=== PATIENT | male | born 1995 | race African-American/Black ===

== ENCOUNTER 2019-12-07 18:07 | Emergency (ER) | payer SELFPAY ==
--- NOTE | 2019-12-07 19:27 | ER ---
Nurse's Notes [facility] Name: Sumit Dangelo Jr Age: 23 yrs Sex: Male : 1995 Arrival Date: 12/07/2019 Time: 18:11 Bed Waiting Private MD: Diagnosis: Presentation: 12/06 18:28 Chief complaint: Patient states: States he would like to be checked for STD's. Denies ll1 being knowingly exposed to STD's. Denies any symptoms. No fever, no N/V/D. Coronavirus screen: Proceed with normal triage. Patient denies a cough. Patient denies shortness of breath or difficulty breathing. Patient denies measured and/or subjective temperature greater than 100.4F prior to today's visit. Patient denies travel on a cruise ship or to a country the [facility] currently lists as an affected area. Patient denies contact with known and/or suspected case of COVID-19. Ebola Screen: Patient denies travel to an Ebola-affected area in the 21 days before illness onset. Initial Sepsis Screen: Does the patient meet any 2 criteria? HR > 90 bpm. No. Patient's initial sepsis screen is negative. Does the patient have a suspected source of infection? No. Patient's initial sepsis screen is negative. Risk Assessment: Do you want to hurt yourself or someone else? Patient reports no desire to harm self or others. Onset of symptoms was December 07, 2019. 18:28 Method Of Arrival: Ambulatory ll1 18:28 Acuity: CHRIS 5 ll1 Historical: - Allergies: 18:30 No Known Allergies; ll1 - PMHx: 18:30 None; ll1 - PSHx: 18:30 None; ll1 - Immunization history:: Adult Immunizations up to date. - Social history:: Smoking status: Patient denies any tobacco usage or history of. Patient/guardian denies using alcohol, street drugs, tobacco products. Vital Signs: 18:28 BP 157 / 93; Pulse 100; Resp 18; Temp 99.1; Pulse Ox 97% ; Pain 0/10; ll1 ED Course: 18:11 Patient arrived in ED. as 18:30 Triage completed. ll1 18:30 Arm band placed on Patient notified of wait time. ll1 19:25 Patient's name was called from ER lobby. No response. Unable to locate patient. Will ll1 disposition as left without being seen by a provider. Administered Medications: No medications were administered Outcome: 19:26 Patient left the ED. ll1 Signatures: Abida Mac Lynsay, RN RN ll1
[2019-12-07 19:34] VITALS: BP 157/93; TEMP 99.1; O2SAT 97
== END 2019-12-07 19:26 | disposition left against medical advice (07) ==
LOC: ER 18:07
DX: Z20.2 Contact with and (suspected) exposure to infections with a predominantly sexual mode of transmission (principal); Z53.21 Procedure and treatment not carried out due to patient leaving prior to being seen by health care provider
CPT/HCPCS: 99281

== ENCOUNTER 2019-12-14 20:33 | Emergency (ER) | payer SELFPAY ==
[2019-12-14 20:59] LABS: Basophils % 0.4 % (0-1.3); Hematocrit 47.1 % (39.6-49.0); Lymphocytes % 10.6 % (15.3-44.8); MPV 8.3 fL (7.6-11.3)
[2019-12-14 21:03] LABS: Protime INR 1.09
[2019-12-14] MEDS ORDERED: ACT CHARCOAL/SORB 50 GM/240ML ONE (21:04)
[2019-12-14 21:13] LABS: ALT/SGPT 31 U/L (12-78); AST/SGOT 30 U/L (15-37); Albumin 4.1 g/dL (3.4-5.0); Alkaline Phosphatase 162 U/L (45-117); BUN Blood Urea Nitrogen 10 mg/dL (7-18); Bicarbonate 26 mmol/L (21-32); Bilirubin Direct 0.1 mg/dL (0-0.2); Bilirubin Total 0.3 mg/dL (0.2-1.0); Glucose Level 86 mg/dL (74-106); Potassium 3.8 mmol/L (3.5-5.1); Protein, Total 8.2 g/dL (6.4-8.2); Sodium Level 139 mmol/L (136-145)
[2019-12-14] MEDS ORDERED: NA CHLORIDE 0.9% 2,000 ML ONE (21:18)
[2019-12-14 22:14] LABS: Urine Blood NEGATIVE (NEG); Urine Glucose NEGATIVE (NEG); Urine Protein NEGATIVE (NEG); Urine Specific Gravity >1.030 (1.005-1.030); Urine pH 5.5 (5.0-7.0)
[2019-12-14 22:30] LABS: Barbiturates NEGATIVE (NEGATIVE); Benzodiazepines NEGATIVE (NEGATIVE); Cocaine POSITIVE (NEGATIVE); METHAMPHETAM NEGATIVE (NEGATIVE); Methadone NEGATIVE (NEGATIVE); Opiates NEGATIVE (NEGATIVE); Phencyclidine POSITIVE (NEGATIVE); THC Cannibis POSITIVE (NEGATIVE)
[2019-12-14 22:43] VITALS: BP 155/82; O2SAT 98
--- NOTE | 2019-12-15 19:27 | ER ---
Nurse's Notes [facility] Name: Sumit Dangelo Jr Age: 23 yrs Sex: Male : 1995 Arrival Date: 12/14/2019 Time: 20:34 Bed External Waiting Private MD: None, None Diagnosis: Drug overdose ( Recreational ) Presentation: 12/13 20:36 Acuity: CHRIS 2 sg 20:36 Chief complaint: EMS states: pt ingested 4 boxes of [employer] brand cough DM tablets, these sg boxes contained 16 tabs each, each tablet of 30 mg. pt reports to police that he was not suicidal or homicidal, he just wanted to experience a high. pt is alert and oriented to self and date of , was not oriented to day or location per EMS. Note Poison Control contacted, spoke with Harpreet . Harpreet reports this patient will need Supportive care, manage airway, observe for seizure activity, agitation, hallucinations. Treatment includes EKG, toxic workup, Activated charcoal within an hour of ingestion, depending on lab results may require Bicarb Drip. VS assessment includes elevated HR, elevated BP. If seizure activity treat with benzos and IV fluids prn. This patient will require minimum observation of 4-6 hours if stable during that time may dc to home for follow up. 20:36 Method Of Arrival: EMS: [facility] sg 20:36 Coronavirus screen: Proceed with normal triage. Ebola Screen: Patient negative for sg fever greater than or equal to 101.5 degrees Fahrenheit, and additional compatible Ebola Virus Disease symptoms Patient denies exposure to infectious person. Patient denies travel to an Ebola-affected area in the 21 days before illness onset. No symptoms or risks identified at this time. Initial Sepsis Screen: Does the patient meet any 2 criteria? Altered Mental Status. HR > 90 bpm. Yes Does the patient have a suspected source of infection? No. Patient's initial sepsis screen is negative. Risk Assessment: Do you want to hurt yourself or someone else? Patient reports no desire to harm self or others. Other: reports only wanted to get high. Onset of symptoms was December 14, 2019. Care prior to arrival: IV initiated. 20 GA, in the right antecubital area. Activity prior to arrival: confused. Transition of care: patient was not received from another setting of care. 20:54 Coronavirus screen: Proceed with normal triage. Ebola Screen: No symptoms or risks ea identified at this time. Initial Sepsis Screen: Does the patient meet any 2 criteria? No. Patient's initial sepsis screen is negative. Does the patient have a suspected source of infection? No. Patient's initial sepsis screen is negative. Risk Assessment: Do you want to hurt yourself or someone else? Patient reports no desire to harm self or others. 20:54 Method Of Arrival: EMS: [facility] ea Historical: - Allergies: 20:45 No Known Allergies; sg - Home Meds: 20:46 None [Active]; sg - PMHx: 20:46 None; sg - PSHx: 20:45 None; sg - Immunization history:: Adult Immunizations up to date. - Social history:: Smoking status: Patient denies any tobacco usage or history of. Screenin:52 Abuse screen: Denies threats or abuse. Nutritional screening: No deficits noted. ea Tuberculosis screening: No symptoms or risk factors identified. Fall Risk IV access (20 points). Assessment: 20:52 General: Appears in no apparent distress. Behavior is appropriate for age. Pain: Denies ea pain. Neuro: Level of Consciousness is awake, alert, obeys commands, Oriented to person, place, time. Cardiovascular: Patient's skin is warm and dry. Respiratory: Airway is patent Respiratory effort is even, unlabored, Respiratory pattern is regular, symmetrical. Derm: Skin is dry, Skin is normal, Skin temperature is cool. 21:08 Reassessment: Patient and/or family updated on plan of care and expected duration. Pain ea level reassessed. Patient is alert, oriented x 3, equal unlabored respirations, skin warm/dry/pink. 22:04 Reassessment: Patient and/or family updated on plan of care and expected duration. Pain ea level reassessed. Patient is alert, oriented x 3, equal unlabored respirations, skin warm/dry/pink. 22:35 Reassessment: Patient and/or family updated on plan of care and expected duration. Pain ea level reassessed. Patient is alert, oriented x 3, equal unlabored respirations, skin warm/dry/pink. Pt left ED AMA. Vital Signs: 20:30 BP 156 / 79; Pulse 120; Resp 18; Temp 97.2; Pulse Ox 100% on R/A; sg 20:55 Weight 113.4 kg; ea 21:07 BP 155 / 82; Pulse 110; Resp 18; Pulse Ox 98% ; ea 22:04 BP 155 / 82; Pulse 92; Resp 18; Pulse Ox 98% ; ea ED Course: 20:34 Patient arrived in ED. ds1 20:36 Triage completed. sg 20:36 Arm band placed on. sg 20:51 Lisbet Bains RN is Primary Nurse. ea 20:52 Maintain EMS IV. Dressing intact. Good blood return noted. Site clean \T\ dry. Gauge \T\ ea site: 18 G to right AC. 20:55 None, None is Private Physician. sg 21:00 Cecil Slater MD is Attending Physician. pkarmand 21:00 Seizure precautions initiated. ea 21:08 Patient has correct armband on for positive identification. Placed in gown. Bed in low ea position. Call light in reach. Side rails up X2. 22:35 IV discontinued, intact, bleeding controlled, No redness/swelling at site. Pressure ea dressing applied. 22:39 Primary Nurse role handed off by Lisbet Bains RN ea Administered Medications: 21:05 Drug: Activated Charcoal Suspension (50 g/240 mL) 1 g/kg Route: PO; ea 21:15 Drug: NS 0.9% 1000 ml Route: IV; Rate: 1000 ml; Site: right antecubital; ea 21:43 Not Given (Hemodynamic Parameters): Lopressor 5 mg IVP once; Hold for SBP <100 or HR ea <60. Outcome: 22:35 AMA AMA form signed ea 22:35 Condition: stable 22:36 Patient left the ED. ea 23:23 Patient left the ED. Signatures: Luis Coyne, RN RN Cecil Slater MD MD pkl Sanford, Demi ds1 Lisbet Bains RN RN ea
--- NOTE | 2019-12-15 19:27 | EDPHYS ---
Physician Documentation [facility] Name: Sumit Dangelo Jr Age: 23 yrs Sex: Male : 1995 Arrival Date: 12/14/2019 Time: 20:34 Bed External Waiting Private MD: None, None ED Physician Cecil Slater HPI: 12/13 21:08 This 23 yrs old Black Male presents to ER via EMS with complaints of Overdose. pkl 21:08 The patient presents to the emergency department after a known overdose, a result of pkl recreational substance abuse. Context: Method: the patient has a confirmed or suspected ingestion, Time: 3 hour(s) ago. Associated signs and symptoms: The patient has no apparent associated signs or symptoms. Patient denies suicidal. Said he just wanted to get high. Ingested 4 boxes of [employer] brand cough DM tablets ( 16 in each box, 30 mg each tablet ). Historical: - Allergies: 20:45 No Known Allergies; sg - Home Meds: 20:46 None [Active]; sg - PMHx: 20:46 None; sg - PSHx: 20:45 None; sg - Immunization history:: Adult Immunizations up to date. - Social history:: Smoking status: Patient denies any tobacco usage or history of. ROS: 21:08 Eyes: Negative for injury, pain, redness, and discharge, ENT: Negative for injury, pkl pain, and discharge, Neck: Negative for injury, pain, and swelling. 21:08 Cardiovascular: Negative for chest pain. 21:08 Respiratory: Negative for cough, shortness of breath. 21:08 Abdomen/GI: Negative for abdominal pain, nausea, vomiting, and diarrhea. 21:08 Back: Negative for pain at rest. 21:08 : Negative for urinary symptoms. 21:08 MS/extremity: Negative for acute changes. 21:08 Skin: Negative for rash. 21:08 Neuro: Negative for altered mental status. Exam: 21:08 Head/Face: Normocephalic, atraumatic. Eyes: Pupils equal round and reactive to light, pkl extra-ocular motions intact. Lids and lashes normal. Conjunctiva and sclera are non-icteric and not injected. Cornea within normal limits. Periorbital areas with no swelling, redness, or edema. ENT: Nares patent. No nasal discharge, no septal abnormalities noted. Tympanic membranes are normal and external auditory canals are clear. Oropharynx with no redness, swelling, or masses, exudates, or evidence of obstruction, uvula midline. Mucous membranes moist. Neck: Trachea midline, no thyromegaly or masses palpated, and no cervical lymphadenopathy. Supple, full range of motion without nuchal rigidity, or vertebral point tenderness. No Meningismus. Chest/axilla: Normal chest wall appearance and motion. Nontender with no deformity. No lesions are appreciated. 21:08 Cardiovascular: Rate: tachycardic, actual rate is 110 bpm, Rhythm: regular. 21:08 ECG was reviewed by the Attending Physician. Biatrial emlargement 21:08 Respiratory: the patient does not display signs of respiratory distress, Respirations: normal, Breath sounds: are clear throughout. 21:08 Abdomen/GI: Bowel sounds: normal, Palpation: abdomen is soft and non-tender, in all quadrants. 21:08 Back: Exam negative for acute changes. 21:08 : Exam negative for acute changes. 21:08 Musculoskeletal/extremity: Exam is negative for acute changes. 21:08 Skin: Exam negative for rash. 21:08 Neuro: Orientation: is normal, Mentation: is normal, Cranial nerves: grossly normal, Motor: is normal. Vital Signs: 20:30 BP 156 / 79; Pulse 120; Resp 18; Temp 97.2; Pulse Ox 100% on R/A; sg 20:55 Weight 113.4 kg; ea 21:07 BP 155 / 82; Pulse 110; Resp 18; Pulse Ox 98% ; ea 22:04 BP 155 / 82; Pulse 92; Resp 18; Pulse Ox 98% ; ea MDM: 21:01 Patient medically screened. pkl 22:40 Data reviewed: vital signs, nurses notes, lab test result(s), EKG, radiologic studies, pkl plain films. ED course: Patient feeling better. Does not want to be observed further. Sign AMA. 12/13 20:47 Order name: Acetaminophen; Complete Time: 22:43 mg2 12/13 20:47 Order name: Basic Metabolic Panel; Complete Time: 22:43 mg2 12/13 20:47 Order name: CBC with Diff; Complete Time: 22:43 mg2 12/13 20:47 Order name: ETOH Level; Complete Time: 22:43 mg2 12/13 20:47 Order name: Hepatic Function; Complete Time: 22:43 mg2 12/13 20:47 Order name: PT-INR; Complete Time: 22:43 mg2 12/13 20:47 Order name: Ptt, Activated; Complete Time: 22:43 mg2 12/13 20:47 Order name: Salicylate; Complete Time: 22:43 mg2 12/13 20:47 Order name: Urine Drug Screen; Complete Time: 22:43 mg2 12/13 22:10 Order name: Urine Dipstick--Ancillary (enter results); Complete Time: 22:43 mn 12/13 20:47 Order name: EKG - Nurse/Tech; Complete Time: 20:47 mg2 12/13 20:47 Order name: IV Saline Lock; Complete Time: :47 mg2 12/13 20:47 Order name: Labs collected and sent; Complete Time: :47 mg2 12/13 20:47 Order name: Urine Dipstick-Ancillary (obtain specimen); Complete Time: 22:07 mg2 12/13 21:21 Order name: Seizure Precautions; Complete Time: 21:21 ea Administered Medications: 21:05 Drug: Activated Charcoal Suspension (50 g/240 mL) 1 g/kg Route: PO; ea 21:15 Drug: NS 0.9% 1000 ml Route: IV; Rate: 1000 ml; Site: right antecubital; ea 21:43 Not Given (Hemodynamic Parameters): Lopressor 5 mg IVP once; Hold for SBP <100 or HR ea <60. Disposition: 12/14/19 22:36 Patient has left against medical advice. Impression: Drug overdose ( Recreational ). - Patients states they are going to Home. - Condition is Stable. Follow up: Private Physician; When: 1 - 2 days; Reason: Re-evaluation by your physician. - Problem is new. - Symptoms have improved. Signatures: Dispatcher [employer] EDLuis Baldwin RN RN sg Lam, Pin, MD MD pkl Antunez, Elena, RN RN ea Gardose, Michele, RN RN mg2 Corrections: (The following items were deleted from the chart) 22:42 22:36 12/14/2019 22:36 Patients has left against medical advice. Patient states they pkl are going to Home. Condition is Stable. ea :42 22:42 12/14/2019 22:36 Patients has left against medical advice. Patient states they pkl are going to Home. Condition is Stable. Follow up: Private Physician; When: 1 - 2 days; Reason: Re-evaluation by your physician. Problem is new. Symptoms have improved. pkl 23:23 22:42 12/14/2019 22:36 Patients has left against medical advice. Impression: Drug sg overdose ( Recreational ). Patient states they are going to Home. Condition is Stable. Follow up: Private Physician; When: 1 - 2 days; Reason: Re-evaluation by your physician. Problem is new. Symptoms have improved. pkl
== END 2019-12-14 23:23 | disposition left against medical advice (07) ==
LOC: ER 20:33
DX: T50.991A Poisoning by other drugs, medicaments and biological substances, accidental (unintentional), initial encounter (principal)
CPT/HCPCS: 36415; 80048; 80076; 80307; 80320; 80329; 81003; 85025; 85610; 85730; 99283; J7030